=== PATIENT | female | born 1960 | race Hispanic/Latino ===

== ENCOUNTER 2023-09-27 12:21 | Emergency (ER) | payer MEDICARE, OTHER ==
[~2023-09-27] VITALS: Ht 157.5 cm; Wt 83.9 kg
[~2023-09-27 12:21] MED LIST: CALCIUM PO; DIPH-1242 PO; DULO30CA52 PO; EZET10TA81 PO; FLUT1AER IH; GARL1000 PO; HYDR-3965 PO; MILK175C5 PO; NAPR-1023 PO; OMEG-108 PO; PANT40TA54 PO; PRAV10TA39 PO; PREG75 PO; VIT PO
[2023-09-27 12:41] LABS: BASOPHILS # (AUTO) 0.06 K/uL (0.00-0.20); BASOPHILS % (AUTO) 0.7 % (0.0-5.0); EOSINOPHILS # (AUTO) 0.28 K/uL (0.00-0.70); EOSINOPHILS % (AUTO) 3.4 % (0.0-8.0); HEMATOCRIT 38.9 % (36-48); IMMATURE GRANULOCYTE ABSOLUTE 0.02 K/uL (0-1); LYMPHOCYTES # (AUTO) 1.6 K/uL (1.0-4.8); LYMPHOCYTES % (AUTO) 19.7 % (21.0-51.0); MEAN CORPUSCULAR HEMOGLOBIN 26.4 pg (27.0-33.0); MEAN CORPUSCULAR HGB CONC 32.1 g/dL (32.0-36.0); MEAN CORPUSCULAR VOLUME 82.1 fL (79-99); MONOCYTES # (AUTO) 0.5 K/uL (0.1-1.0); MONOCYTES % (AUTO) 6.6 % (3.0-13.0); NEUTROPHILS # (AUTO) 5.6 K/uL (1.8-7.7); NEUTROPHILS % (AUTO) 69.4 % (40.0-77.0); PLATELET COUNT (AUTO) 322 K/uL (130-400); RED BLOOD CELL COUNT(AUTO) 4.74 MIL/uL (4.00-5.50); RED CELL DISTRIBUTION WIDTH 14.1 % (11.0-15.5); WHITE BLOOD COUNT (AUTO) 8.1 K/uL (4.8-10.8)
[2023-09-27 13:11] LABS: B-TYPE NATRIURETIC PEPTIDE 21 pg/mL (0-100)
[2023-09-27 14:15] LABS: ALBUMIN 3.8 g/dL (3.5-5.0); BILIRUBIN,TOTAL 0.3 mg/dL (0.2-1.0); CREATININE 0.7 mg/dL (0.5-1.0); TOTAL PROTEIN, SERUM 7.5 g/dL (6.0-8.3)
[2023-09-27 15:38] VITALS: BP 151/70; PULSE 68; RESP 16; O2SAT 96
[2023-09-27] MEDS ORDERED: NAPR-1180 PO (15:59)
== END 2023-09-27 16:18 | disposition home or self-care (01) ==
LOC: EDH 12:21
DX: R07.89 Other chest pain (principal); E78.00 Pure hypercholesterolemia, unspecified; J45.909 Unspecified asthma, uncomplicated; M19.90 Unspecified osteoarthritis, unspecified site; M79.7 Fibromyalgia; Z79.899 Other long term (current) drug therapy; Z90.49 Acquired absence of other specified parts of digestive tract; Z90.89 Acquired absence of other organs; Z98.890 Other specified postprocedural states; Z88.1 Allergy status to other antibiotic agents; Z88.5 Allergy status to narcotic agent
CPT/HCPCS: 36415; 71045; 80053; 83735; 83880; 84484; 85025; 93005

== ENCOUNTER → 2024-04-02 | Outpatient (CLI) | payer OTHER ==
[~2024-04-02] MED LIST changes: -GARL1000 PO; +GARL10002 PO; +NAPR-1180 PO
== END | disposition home or self-care (01) ==
LOC: RAH 09:51
PROVIDERS: ATTEND Surgery
DX: K44.9 Diaphragmatic hernia without obstruction or gangrene (principal); K21.9 Gastro-esophageal reflux disease without esophagitis
CPT/HCPCS: 74240

== ENCOUNTER 2024-04-23 15:33 | Emergency (ER) | payer OTHER ==
[~2024-04-23] VITALS: Ht 157.5 cm; Wt 78.0 kg
--- NOTE | 2024-04-23 17:16 | HMCIMG ---
CT HEAD WITHOUT CONTRAST INDICATION: Left arm numbness TECHNIQUE: Noncontrast axial helical CT images from the vertex through the skull base using 5 mm slice thickness without contrast material. CT was performed with one or more of the following dose reduction techniques: Automated exposure control, adjustment of the mA and/or kV according to patient size, or use of iterative reconstruction technique. COMPARISON: None FINDINGS: The cerebral and cerebellar hemispheres are age-appropriate in appearance. No evidence for abnormal extra-axial fluid collections or masses. The ventricles and sulci are normal in size and configuration. No evidence for intracranial parenchymal, epidural, or subdural hemorrhage, mass effect or midline shift. The heart-white matter differentiation is well preserved. No secondary evidence to suggest acute ischemia. The brainstem and cerebellum appear normal. The visualized orbits appear unremarkable. The visible paranasal sinuses and mastoid air cells are clear. The calvarium appears normal. IMPRESSION: No acute intracranial process identified.
[2024-04-23 17:25] LABS: BASOPHILS # (AUTO) 0.02 K/uL (0.00-0.20); BASOPHILS % (AUTO) 0.3 % (0.0-5.0); EOSINOPHILS # (AUTO) 0.01 K/uL (0.00-0.70); EOSINOPHILS % (AUTO) 0.1 % (0.0-8.0); IMMATURE GRANULOCYTE ABSOLUTE 0.02 K/uL (0-1); LYMPHOCYTES # (AUTO) 0.6 K/uL (1.0-4.8); LYMPHOCYTES % (AUTO) 9.6 % (21.0-51.0); MEAN CORPUSCULAR HEMOGLOBIN 25.9 pg (27.0-33.0); MEAN CORPUSCULAR HGB CONC 31.7 g/dL (32.0-36.0); MEAN CORPUSCULAR VOLUME 81.6 fL (79-99); MONOCYTES # (AUTO) 0.2 K/uL (0.1-1.0); MONOCYTES % (AUTO) 2.2 % (3.0-13.0); NEUTROPHILS # (AUTO) 5.9 K/uL (1.8-7.7); NEUTROPHILS % (AUTO) 87.5 % (40.0-77.0); PLATELET COUNT (AUTO) 307 K/uL (130-400); RED BLOOD CELL COUNT(AUTO) 4.41 MIL/uL (4.00-5.50); RED CELL DISTRIBUTION WIDTH 15.8 % (11.0-15.5); WHITE BLOOD COUNT (AUTO) 6.7 K/uL (4.8-10.8)
[2024-04-23 17:33] LABS: CREATININE 0.7 mg/dL (0.5-1.0); POTASSIUM 3.7 mmol/L (3.5-5.1)
[2024-04-23 18:01] LABS: ADD UA MICROSCOPIC YES; APPEARANCE,URINE CLEAR (CLEAR); BILIRUBIN,URINE NEGATIVE (NEGATIVE); COLOR,URINE LIGHT-YELLOW (YELLOW); GLUCOSE, URINE (UA) NEGATIVE (NEGATIVE); KETONES,URINE NEGATIVE (NEGATIVE); LEUKOCYTE ESTERASE ,URINE NEGATIVE Leu/uL (NEGATIVE); NITRATE,URINE NEGATIVE (NEGATIVE); OCCULT BLOOD,URINE NEGATIVE (NEGATIVE); PROTEIN,URINE NEGATIVE (NEGATIVE); UROBILINOGEN,URINE 0.2 mg/dL (0.2-1.0)
[2024-04-23 18:02] LABS: MUCUS,URINE RARE LPF (None Seen); RBC,URINE 0-1 /HPF (0-1); SQUAMOUS EPITHELIAL CELL,UR RARE /HPF (0-2); WBC,URINE 0-1 /HPF (0-1)
--- NOTE | 2024-04-23 18:09 | ERN ---
General Chief Complaint: Numbness Stated Complaint: NUMBNESS Time Seen by MD: 15:36 Time Seen by Midlevel: 15:36 Source: patient History of Present Illness Initial Comments Patient is a 63-year-old female with an extensive medical history which includes fibromyalgia, osteoarthritis, hyperlipidemia, anemia, and Graves disease who presents to the emergency department with multiple complaints. She states her initial complaint is that she is having left lower extremity pain. She has already been seen by her doctor for this issue multiple times. Yesterday she had an ultrasound performed to rule out a DVT and will be getting results in two days. Today she reports developing numbness to her left upper arm. On arrival she specifically states that she does not believes she is having a stroke but is having a tingling sensation. She denies any focal weakness, vision changes, headache, chest pain, shortness for breath, or any other symptoms at this time. Allergies: Coded Allergies: cefazolin (Unverified Allergy, Unknown, 11/20/15) codeine (Unverified Allergy, Unknown, 11/20/15) Home Meds Active Scripts Naproxen (Naprosyn) 500 Mg Tablet, 500 MG PO BIDPC for 10 Days, #20 TAB 0 Refills Prov:NICOLA NY MD 09/27/23 Reported Medications Hydrocodone Bit/Acetaminophen ([place] 5 mg/325 mg) 5 Mg/325 Mg Tab, 1-2 TAB PO Q6H PRN for PAIN, TAB 01/16/16 Naproxen (Naproxen) 500 Mg Tablet, 500 MG PO BID, TAB 01/16/16 Fluticasone/Vilanterol (Breo Ellipta 100-25 Mcg INH) 1 Each Aer.pow.ba, 1 EACH IH DAILY PRN PRN for ASTHMA 01/13/16 Pantoprazole Sodium (Pantoprazole Sodium) 40 Mg Tablet.dr, 40 MG PO BID, TAB 01/13/16 Garlic (Garlic) 1,000 Mg Capsule, 1000 MG PO DAILY, CAP 01/13/16 [place]-3/Dha/Epa/Fish Oil (Fish Oil [place]-3 EC 1,200 mg) 1 Each Capsule.dr, 1 EACH PO BID, CAP 01/13/16 Milk Thistle Seed Extract (Milk Thistle) 175 Mg Capsule, 175 MG PO DAILY, CAP 01/13/16 [Calcium +Vit D3] No Conflict Check, 1200 MG PO BID 01/13/16 Diphenhydramine HCl (Benadryl) 25 Mg Cap, 25 MG PO BID PRN PRN for ITCHING, CAP 01/13/16 Ezetimibe (Zetia) 10 Mg Tablet, 10 MG PO HS, TAB 01/13/16 Pregabalin (Lyrica) 75 Mg Cap, 75 MG PO BID, CAP 01/13/16 Pravastatin Sodium (Pravastatin Sodium) 10 Mg Tablet, 10 MG PO DAILY, TAB 11/20/15 Duloxetine HCl (Duloxetine HCl) 30 Mg Capsule.dr, 60 MG PO DAILY, CAP 11/20/15 Past Medical History Past Medical History: Anemia, Arthritis, Asthma, High Cholesterol Medical History Other: FIBROMYALGIA, GRAVES DISEASE Past Surgical History: Tonsillectomy, Cholecystectomy Surgical History Other: LEFT KNEE SCOPED ROS Dictation CONSTITUTIONAL: Negative except for HPI HEAD/FACE: Negative except for HPI EENT: Negative except for HPI RESPIRATORY: Negative except for HPI GASTROINTESTINAL/ABDOMINAL: Negative except for HPI GENITOURINARY: Negative except for HPI MUSCULOSKELETAL: Negative except for HPI INTEGUMENTARY: Negative except for HPI NEUROLOGICAL/PSYCH: Negative except for HPI HEMATOLOGIC/LYMPHATIC: Negative except for HPI All Systems Negative, Except as noted above. 13 point review of systems assessed and all negative except for above. Physical Exam Physical Exam Dictation Vital Signs reviewed General Appearance: Alert, oriented x 3, no acute distress, well developed, nourished. Head and Face: non-traumatic. Eyes: PERRL, pink conjunctivas, eyelid no trauma, anterior chamber with arcus senilis. Ears: Pinnas intact and no signs of trauma or erythema ear canals clear and no discharge TM no erythema Nose: No discharge, no bleeding. Oropharynx: Mouth normal, tongue pink, pharynx clear,no erythema, tonsils no exudates, no abscesses noted, mucous membrane moist Neck: Supple, non-tender, no thyromegaly, no masses, no JVD, no bruits Breast:Deferred Chest:No tenderness, no crepitus, no paradoxical movement, no retractions Lungs:Clear, well-ventilated, symmetric, no rales, no wheezing, no rhonchi, no stridor, good breath sounds bilaterally Heart: Regular rate, regular rhythm, no murmur, no gallops Vascular: no peripheral edema, Abdomen: Soft, positive bowel sounds, nondistended, no guarding, nontender, no rebound, no masses no hepatomegaly, no splenomegaly, no Platt's sign, no hernias. Rectal: Deferred Genital: Deferred Neurological: Normal speech, motor function intact, sensory function intact Musculoskeletal: Neck nontender, full range of motion, back nontender, full range of motion, Extremities: nontender, full range of motion Skin: Color pink, dry, no turgor, no rash, no lacerations, no abrasions, no contusions. Lymphatic: Deferred Results Laboratory and Microbiology Lab and Micro Result Laboratory Tests Test 04/23/24 17:19 04/23/24 17:54 White Blood Count 6.7 K/uL (4.8-10.8) Red Blood Count 4.41 MIL/uL (4.00-5.50) Hemoglobin 11.4 g/dL (12.0-16.0) L Hematocrit 36.0 % (36-48) Mean Corpuscular Volume 81.6 fL (79-99) Mean Corpuscular Hemoglobin 25.9 pg (27.0-33.0) L Mean Corpuscular Hemoglobin Concent 31.7 g/dL (32.0-36.0) L Red Cell Distribution Width 15.8 % (11.0-15.5) H Platelet Count 307 K/uL (130-400) Mean Platelet Volume 8.7 fL (7.5-10.5) Immature Granulocyte % (Auto) 0.3 % (0-1) Neutrophils (%) (Auto) 87.5 % (40.0-77.0) H Lymphocytes (%) (Auto) 9.6 % (21.0-51.0) L Monocytes (%) (Auto) 2.2 % (3.0-13.0) L Eosinophils (%) (Auto) 0.1 % (0.0-8.0) Basophils (%) (Auto) 0.3 % (0.0-5.0) Neutrophils # (Auto) 5.9 K/uL (1.8-7.7) Lymphocytes # (Auto) 0.6 K/uL (1.0-4.8) L Monocytes # (Auto) 0.2 K/uL (0.1-1.0) Eosinophils # (Auto) 0.01 K/uL (0.00-0.70) Basophils # (Auto) 0.02 K/uL (0.00-0.20) Absolute Immature Granulocyte (auto 0.02 K/uL (0-1) Nucleated Red Blood Cells 0.0 % (0.0-0.19) White Cell Morphology Comment See comments Sodium Level 136 mmol/L (136-145) Potassium Level 3.7 mmol/L (3.5-5.1) Chloride Level 99 mmol/L (101-111) L Carbon Dioxide Level 26 mmol/L (21-32) Blood Urea Nitrogen 16 mg/dL (7-18) Creatinine 0.7 mg/dL (0.5-1.0) Glomerular Filtration Rate Calc 96 mL/min (>90) Random Glucose 130 mg/dL (70-105) H Total Calcium 9.0 mg/dL (8.5-10.1) Urine Color LIGHT-YELLOW (YELLOW) Urine Appearance CLEAR (CLEAR) Urine pH 6.0 (5.0-8.0) Urine Specific [place] 1.012 (1.001-1.031) Urine Protein NEGATIVE mg/dL (NEGATIVE) Urine Glucose (UA) NEGATIVE mg/dL (NEGATIVE) Urine Ketones NEGATIVE mg/dL (NEGATIVE) Urine Occult Blood NEGATIVE (NEGATIVE) Urine Nitrate NEGATIVE (NEGATIVE) Urine Bilirubin NEGATIVE mg/dL (NEGATIVE) Urine Urobilinogen 0.2 mg/dL (0.2-1.0) Urine Leukocyte Esterase NEGATIVE John/uL Urine RBC 0-1 /HPF (0-1) Urine WBC 0-1 /HPF (0-1) Urine Squamous Epithelial Cells RARE /HPF (0-2) Urine Bacteria None /HPF (None Seen) Labs Reviewed?: Yes MDM MDM: Patient is a 63-year-old female with an extensive medical history which includes fibromyalgia, osteoarthritis, hyperlipidemia, anemia, and Graves disease who presents to the emergency department with multiple complaints. She states her initial complaint is that she is having left lower extremity pain. She has already been seen by her doctor for this issue multiple times. Yesterday she had an ultrasound performed to rule out a DVT and will be getting results in two days. Today she reports developing numbness to her left upper arm. On arrival she specifically states that she does not believes she is h aving a stroke but is having a tingling sensation. She denies any focal weakness, vision changes, headache, chest pain, shortness for breath, or any other symptoms at this time. On physical examination patient is in no acute distress. She was able to ambulate from the triage area into her examination room without assistance and with a normal gait. She is alert and oriented x4. Her GCS is 14. Her neurological examination is unremarkable. There is some subjective numbness to the upper portion of her left arm. However, she has full strength to bilateral upper and lower extremities. Given the nature of her symptoms we will obtain a CT scan to rule out any intracranial abnormality. Basic labs were ordered to rule out any electrolyte derangements which could be causing her paresthesias. Her CBC does not show any leukocytosis. Her hemoglobin is stable at 11.4. Her platelets are normal at 307. Her chemistries are unremarkable. Her urine does not show any evidence of infection. Her CT scan is negative for any intracranial bleed or any other acute abnormality. On repeat evaluation she does report feeling significantly improved her repeat neurological examination is unchanged. She has an NIH of 0. I do not believe patient was having a stroke. I did advised that she needs to follow up with your primary care doctor and if her symptoms do not improve over the next couple of days she was to return to the ER for any new or worsening symptoms. Patient is agreeable with this plan and all questions have been answered. Differential diagnosis: Fibromyalgia, anxiety, intracranial bleed, electrolyte abnormality There are no social concerns with this patient. Prescription drug management Prescriptions will include: None Medical management and examination interpretation discussions were had by me with other qualified healthcare professionals as indicated for the patient's care. ED Course Orders Procedure Category Date Status Time Cbc With Differential LAB 04/23/24 Complete 16:37 Basic Metabolic Panel LAB 04/23/24 Complete 16:37 Urinalysis Profile LAB 04/23/24 Complete 16:37 Ct Head/Brain W/O CT 04/23/24 Resulted Contrast 16:37 Vital Signs Date Time Temp Pulse Resp B/P (MAP) Pulse Ox O2 Delivery O2 Flow Rate FiO2 04/23/24 18:43 98.2 88 16 136/76 95 Room Air* 0 21 04/23/24 16:12 97.9 100 20 143/76 99 Room Air [facility] [address] [place] [id number] IMAGING REPORT Signed PATIENT: ARLEY GOINS MR#: [id number] : 1960 SEX: F AGE: 63 LOCATION: ED ORDER [id number] STATUS: REG ER REPORT#: [id number] SERVICE [id number] REASON: left arm numbness ORDERING PHYSICIAN: CORRY GOINS PROCEDURE: HEAD WO - CT HEAD/BRAIN W/O CONTRAST CT HEAD WITHOUT CONTRAST INDICATION: Left arm numbness TECHNIQUE: Noncontrast axial helical CT images from the vertex through the skull base using 5 mm slice thickness without contrast material. CT was performed with one or more of the following dose reduction techniques: Automated exposure control, adjustment of the mA and/or kV according to patient size, or use of iterative reconstruction technique. COMPARISON: None FINDINGS: The cerebral and cerebellar hemispheres are age-appropriate in appearance. No evidence for abnormal extra-axial fluid collections or masses. The ventricles and sulci are normal in size and configuration. No evidence for intracranial parenchymal, epidural, or subdural hemorrhage, mass effect or midline shift. The heart-white matter differentiation is well preserved. No secondary evidence to suggest acute ischemia. The brainstem and cerebellum appear normal. The visualized orbits appear unremarkable. The visible paranasal sinuses and mastoid air cells are clear. The calvarium appears normal. IMPRESSION: No acute intracranial process identified. DICTATED BY: BROOK BONILLA MD DATE: 04/23/241712 ELECTRONICALLY SIGNED BY: BROOK BONILLA MD DATE: 04/23/241715 DX & DISP Disposition: Discharge Departure Impression: Primary Impression: Paresthesia of arm Condition: Stable Additional Instructions: Your blood work today is unremarkable. Your electrolytes are normal. Your kidney function is unremarkable. Your urinalysis does not show any evidence of infection. Your CT scan of the head does not show any acute abnormality. You will need to follow up with your primary care provider in 2-3 days for repeat evaluation. Return to the ER for any new or worsening symptoms. Referrals: JOHNNIE BOOTH (PCP) Time of Disposition: 18:08 I have reviewed the case, and I agree with, Diagnosis and Plan I performed the substantive portion of the visit. I have reviewed and personally made and approve the management plan that is documented in the note by myself or the [facility]. I acknowledge for responsibility for the patient's management plan. CORRY GOINS Apr 23, 2024 18:08 TYRONE ENGLISH DO Apr 25, 2024 08:17
[2024-04-23 18:43] VITALS: BP 136/76; PULSE 88; RESP 16; TEMP 98.2; O2SAT 95
== END 2024-04-23 18:51 | disposition home or self-care (01) ==
LOC: EDH 15:33
DX: R20.2 Paresthesia of skin (principal); M79.605 Pain in left leg; R51.9 Headache, unspecified; E78.00 Pure hypercholesterolemia, unspecified; J45.909 Unspecified asthma, uncomplicated; M19.90 Unspecified osteoarthritis, unspecified site; M79.7 Fibromyalgia; Z79.51 Long term (current) use of inhaled steroids; Z79.899 Other long term (current) drug therapy; Z88.1 Allergy status to other antibiotic agents; Z88.5 Allergy status to narcotic agent; Z90.49 Acquired absence of other specified parts of digestive tract; Z90.89 Acquired absence of other organs; Z98.890 Other specified postprocedural states
CPT/HCPCS: 36415; 70450; 80048; 81001; 85025

== ENCOUNTER → 2024-11-12 | Outpatient (CLI) | payer OTHER ==
[~2024-11-12] MED LIST changes: -NAPR-1023 PO; +NAPR-1194 PO
--- NOTE | 2024-11-12 16:50 | HMCIMG ---
DEXA BONE DENSITY SURVEY HISTORY: Menopause COMPARISON: None FINDINGS: Bone densitometry study was performed. Bone mineral density of the lumbar spine is 1.00 gram per centimeter square which corresponds to a T score of -0.4 and a Z score of 1.4. Bone mineral density of the left hip is 0.834 grams per centimeter square which corresponds to a T score of -1.0 and a Z score of 0.2. IMPRESSION: 1. Normal bone mineral density of the lumbar spine and left hip.
== END | disposition home or self-care (01) ==
LOC: RAH 14:42
PROVIDERS: ATTEND Family Medicine
DX: M85.88 Other specified disorders of bone density and structure, other site (principal); Z78.0 Asymptomatic menopausal state
CPT/HCPCS: 77080